=== PATIENT | female | born 1980 | race Caucasian/White ===

== ENCOUNTER 2017-05-02 23:01 | Observation (INO) ==
[2017-05-02 23:18] VITALS: O2SAT 99
--- NOTE | 2017-05-02 23:37 | Emergency Department Report ---
HPI - General Chief complaint: Vaginal Bleeding Stated complaint: 18 weeks ,Bleeding/cramping Time Seen by Provider: 05/02/17 23:03 Source: patient Mode of arrival: ambulatory Limitations: no limitations - History of Present Illness HPI Narrative: Patient is with an 18 week intrauterine , and sees Dr. Gillis in [place]. One to 2 hours ago the patient began having vaginal spotting with cramping, and the spotting has grown worse to the point that she feels as though she may be passing tissue. Patient is quite scared as she has had one early miscarriage in the past, and no other pregnancies. Patient denies trauma, urinary symptoms fevers, nausea or vomiting, or respiratory symptoms. Patient has had no complications during the , and no other medical problems or surgeries - Related Data Home Medications Medication Instructions Recorded Confirmed No known Home medications [No home 05/03/17 05/03/17 meds] Allergies Allergy/AdvReac Type Severity Reaction Status Date / Time No Known Allergies Allergy Verified 05/03/17 00:08 Review of Systems All systems: reviewed and negative except as stated PFS One miscarriage Surgical History: None - Social History Smoking status: Current every day smoker Physical Exam - Limitations Limitations: no limitations - General General appearance: alert (patient is quite anxious/fearful) - Normal Exams: Head:: Normocephalic without trauma Eyes:: Pupils are PERRLA w/ EOMI, No scleral icterus, irritation, or foreign bodies noted Dental: No fractured, loose, or missing teeth noted Neck:: Full range of motion, without adenopathy, JVD, bruits or thyromegaly Chest/Respirations:: Clear all tinajero, with good airflow, and symmetry bilaterally Cardiovascular:: Regular rate and rhythm, without murmur or gallop, Pulses 2+ all extremities, capillary refill, <2 seconds all extremities Musculoskeletal:: No tenderness, or deformity noted, good range of motion, all extremities Integumentary:: No rashes, hives, or bruising noted, hair and nails, without abnormality Neurological:: Patient is alert, and oriented, cranial nerves, motor/sensory/ cerebellar, exams w/o gross deficits, to observation Psychiatric:: Patient exhibits, appropriate attention, emotion and affect - Abdominal Exam Abdominal exam: Present: soft, distention ( with fundus below the umbilicus), tenderness (mode diffuse lower abdominal tenderness, no guarding no rebound), other ( heart tones are present at 157) Course Vital Signs Temperature 98.7 F 05/02/17 23:13 Pulse Rate 95 05/02/17 23:13 Respiratory Rate 20 05/02/17 23:13 Blood Pressure 145/76 H 05/02/17 23:13 Pulse Oximetry 99 05/02/17 23:13 Temperature 98.7 F 05/03/17 01:42 Pulse Rate 95 05/03/17 01:42 Respiratory Rate 20 05/03/17 01:42 Blood Pressure 145/76 H 05/03/17 01:42 Pulse Oximetry 99 05/03/17 01:42 OB/Uterine Contractions - MDM Narrative Medical decision making narrative: Patient declines medication for pain or other symptoms at this time UA - normal Second trimester OB sono - patient appears to have an impending miscarriage with no visible amniotic fluid, and a wide open cervical os Patient is discussed with Dr. Tate - patient admitted to maternal child - Lab Data Lab Results 05/03/17 Range/Units 00:00 Ur Collection Type Urine, clean catch Urine Color Pearl (YELLOW) Urine Clarity Sl cloudy Urine pH 6.5 (5.0-8.0) Ur Specific [place] 1.020 (1.015-1.025) Urine Protein Trace A (NEGATIVE) Urine Glucose (UA) Negative (NEGATIVE) Urine Ketones Negative (NEGATIVE) Urine Occult Blood 3+ A (NEGATIVE) Urine Nitrate Negative (NEGATIVE) Urine Bilirubin Negative (NEGATIVE) Urine Urobilinogen 0.2 (NORMAL) EU/DL Ur Leukocyte Esterase Trace A (NEGATIVE) Urine RBC 5-10 H (0-3) /HPF Urine WBC 1-3 (0-5) /HPF Ur Squamous Epith Cells >50 Amorphous Sediment Moderate Urine Bacteria 1+ H (NEGATIVE) Urine Mucus Present Ur Culture Indicated? Cult not indicated Disposition Clinical Impression: Threatened Disposition: 02 To OB Triage Condition: Stable Prescriptions: No Action No known Home medications [No home meds] 0 #0 misc Referrals: Dany Tabor [Family Provider] - - Seen By: physician
[2017-05-03] MEDS ORDERED: HYDROCODONE/APAP 5mg/325mg TABLET PO ONE (00:02)
[2017-05-03] MEDS ORDERED: DiphenhydrAMINE 25 MG CAPSULE PO ONE (00:02)
[2017-05-03] MEDS ORDERED: RHO(D) IMMUNE GLOBULIN 300 MCG/2 ML INJECTION IVP ONE (03:40)
[2017-05-03] MEDS ORDERED: HYDROMORPHONE PCA 30mg/30ml VIAL IV PRN (03:56)
[2017-05-03 05:15] VITALS: BMI 28.8
--- NOTE | 2017-05-03 06:25 | OB/GYN History & Physical ---
- History of Present Illness Date of Admission: 05/03/17 01:35 Reason for Admission: vaginal bleeding, early complication History of Present Illness: 36 y/o at 19w 4 days by 1st trimester sono presents with abdominal cramping and vaginal bleeding. Patient states she noticed mild cramps and some bleeding and felt something strange in her vagina when she used the restroom. She reports an uncomplicated to date with routine care with Dr. Lara in [facility]. She reports complication with only of RH negative and AMA. She has routine PN lab without abnormality and a negative FFDNA. She currently denies LOF, Vaginal discharge, pelvic pain, fever/ chills, Nausea/Vomitting. 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 OB history positive for 1st timester SAB Surgical History: None Family History: Non contributory - Social History Smoking status: Current every day smoker packs per day: 0.5 Time spent discussing smoking cessation with patient: 3 to 10 minutes Substance use type: does not use Alcohol intake frequency: does not drink Household members: significant other Current occupational exposures/hazards: No Does patient use chewing tobacco?: No Medications Home Medications Medication Instructions Recorded Confirmed Type Vit Calc,Iron,Folic 1 each PO 05/03/17 History [ Vitamins] Allergies Allergy/AdvReac Type Severity Reaction Status Date / Time No Known Allergies Allergy Verified 05/03/17 00:08 Exam Vital signs: Temperature 98.4 F 05/03/17 04:41 Pulse Rate 72 05/03/17 04:41 Respiratory Rate 16 05/03/17 04:41 Blood Pressure 114/70 05/03/17 04:41 Pulse Oximetry 99 05/03/17 01:42 Oxygen Delivery Method Room Air - Constitutional Present: no acute distress - Neck Exam Present: supple, full ROM - Respiratory Exam Present: CTA bilaterally - Cardiovascular Exam Present: RRR, no murmur - Abdominal Exam Present: soft, normoactive bowel sounds, non distended, non tender Comments: Gravid - Detailed Pelvic Exam Bladder: Present: normal Uterus: Present: enlarged Comments: SSE Minimal Bleeding, No pooling, Buldging membranes no identifiable cervical os , no parts seen - Extremities Exam Extremities: Present: no edema, non tender - Neurological Exam Present: alert, oriented X3 - Skin Exam Present: intact - Psychiatric Exam Present: normal affect, normal thought process [employer]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 - Labs CBC & Chem 7: 05/03/17 01:15 05/03/17 01:15 Labs: UA Ur Collection Type Urine, clean catch 05/03/17 05:10 Urine Color Yellow (YELLOW) 05/03/17 05:10 Urine pH 6.0 (5.0-8.0) 05/03/17 05:10 Ur Specific [place] 1.020 (1.015-1.025) 05/03/17 05:10 Urine Protein Negative (NEGATIVE) 05/03/17 05:10 Urine Glucose (UA) Negative (NEGATIVE) 05/03/17 05:10 Urine Ketones Negative (NEGATIVE) 05/03/17 05:10 Urine Occult Blood 3+ (NEGATIVE) A 05/03/17 05:10 Urine Nitrate Negative (NEGATIVE) 05/03/17 05:10 Urine Bilirubin Negative (NEGATIVE) 05/03/17 05:10 Urine Urobilinogen 0.2 EU/DL (NORMAL) 05/03/17 05:10 Ur Leukocyte Esterase Trace (NEGATIVE) A 05/03/17 05:10 - Imaging and Cardiology US - abdomen Additional comments: SLUIP 19w4d by prior dtaes 18w3d days by current exam, Oligohydramnios at 4.2 cm , Posterior placenta no previa or abruption, cephalic, Antepartum Assessment and Plan (1) labor in second trimester Problem details: UDOA, TSH, CG/CH, vaginal CX, Affirm. 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 Lara. Dr. Palomo updated on patient status, Pt declined transfer to [facility] overnight Current visit: Yes Status: Acute Plan: Admit for labor (3) Rh negative status during Problem details: Rhogam Current visit: Yes Status: Acute
[2017-05-03] MEDS ORDERED: LR 1,000 ML IV SCH (07:00)
[2017-05-03] MEDS ORDERED: MetroNIDAZOLE 500 MG TABLET PO SCH (08:00)
--- NOTE | 2017-05-03 08:15 | Ultrasound Report ---
Indication: LOW CRAMPING AND BLEEDING, 18WEEK IUP PROCEDURE: US OB placental eval: Encounter: Initial Age by provided LMP is 19 weeks and 4 days correlating to an CARI of September 23, 2017. Comparison: None PROCEDURE: US OB placental eval: Technique: Grayscale and color Doppler transabdominal sonographic imaging was performed. Findings: There is a single living intrauterine gestation in cephalic lie. Placenta is posterior without previa. Quantity of amniotic fluid is decreased. The cervix appears open. Amniotic fluid index is decreased at 4.2 cm. Largest vertical pocket in the right lower quadrant is 1.7 cm. heart beats regularly at 179 beats per minute. biometry: Biparietal diameter: 4.01 cm 18 weeks and 2 days (6 percentile). Head circumference: 15.89 cm 18 weeks and 6 days (11 percentile). Abdominal circumference: 12.12 cm 17 weeks and 6 days (5 percentile). Femur Length: 2.80 cm 18 weeks and 4 days (12 percentile). biometrics are internally concordant and consistent with an estimated gestational age of 18 weeks and 3 days. Estimated weight is 230 grams (3 percentile by LMP and 33 percentile by AUA method). Impression: 1. Single living intrauterine gestation with age by provided LMP of 19 weeks and 4 days. This correlates to an CARI of September 23, 2017. 2. Best estimate of gestational age on today's exam is 18 weeks and 3 days, correlating to an CARI of October 01, 2017. 3. Fetus measures small for gestational age. There is oligohydramnios. 4. Open cervix raises concern for impending or cervical incompetence. Obstetrical consultation is recommended. Recommend close follow-up. There is a preliminary report by [facility]. .
--- NOTE | 2017-05-03 09:30 | OB/GYN Progress Note ---
OB-Progress Note Free Text - Date Date: 05/03/17 - Progress Note Progress Note: Discussed current condition and pt not continued with cramping or pain. No LOF, Denies VB. Discussed Antepartum care at [facility] vs [facility]. Pt desires Transfer to [facility] with care from [employer]. Advised Pt of findings from evaluation. Pt condition currently stable will Transfer to [facility].
[2017-05-03 09:34] VITALS: BP 108/65; PULSE 65; RESP 18; TEMP 98.5
== END 2017-05-03 10:25 | disposition short-term general hospital (02) ==
LOC: ED 23:01 → MC 23:01 → ED 05-03 01:35
PROVIDERS: ADMIT Obstetrics & Gynecology; ATTEND Obstetrics & Gynecology